=== PATIENT | female | born 1990 | race Caucasian/White ===

== ENCOUNTER → 2017-10-17 | Outpatient (CLI) | payer BC ==
[2012-03-28 21:44] VITALS: BP 113/57
[2017-10-17 16:58] LABS: ALBUMIN 4.1 g/dL (3.5-5.0); BUN/CREATININE RATIO 13.9 (6.0-26.0); CALCIUM 9.6 mg/dL (8.4-10.2); POTASSIUM 4.4 mmol/L (3.6-5.0); TOTAL BILIRUBIN 0.4 mg/dL (0.2-1.3)
[2017-10-17 16:59] LABS: EOS # 0.1 (0.04-0.40); EOS % 1.7 % (1.0-5.0); HEMATOCRIT 41.8 % (37.0-47.0); HEMOGLOBIN 13.9 g/dL (12.5-16.0); LYMPH# 2.9 (1.50-4.00); MEAN CELL VOLUME 90 fl (78-100); MEAN CORPUSCULAR HEMOGLOBIN 30 pg (27-31); MEAN CORPUSCULAR HGB CONC 33 g/dL (33-37); MEAN PLATELET VOLUME 10.8 fl (7.4-10.4); MONO # 0.4 (0.20-0.80); NEU # 2.9 (1.40-6.50); PLATELET COUNT 240 K/mm3 (130-400); RED BLOOD COUNT 4.66 M/mm3 (4.10-5.30); RED CELL DISTRIBUTION WIDTH 12.4 % (11.5-14.5); WHITE BLOOD COUNT 6.3 K/mm3 (4.8-10.8)
[2017-10-17 17:32] LABS: URINE APPEARANCE HAZY; URINE COLOR YELLOW
[2017-10-17 17:33] LABS: URINE BILIRUBIN NEGATIVE (NEGATIVE); URINE BLOOD TRACE (NEGATIVE); URINE GLUCOSE NEGATIVE (NEGATIVE); URINE KETONE NEGATIVE (NEGATIVE); URINE LEUKOCYTE ESTERASE TRACE (NEGATIVE); URINE NITRATE NEGATIVE (NEGATIVE); URINE PROTEIN(semi-quant) TRACE mg/dL (NEGATIVE); URINE UROBILINOGEN NORMAL (NORMAL)
[2017-10-17 17:34] LABS: URINE MUCUS PRESENT (NOT PRESENT)
== END ==
LOC: RAD 15:45
PROVIDERS: Nurse Practitioner Family
DX: R10.11 Right upper quadrant pain (principal)

== ENCOUNTER 2021-01-04 13:00 | Emergency (ER) | payer OTHER ==
[2021-01-04 13:36] LABS: BASO # 0.04 (0.02-0.10); EOS # 0.08 (0.04-0.40); EOS % 0.7 % (1.0-5.0); HEMATOCRIT 39.4 % (37.0-47.0); HEMOGLOBIN 13.4 g/dL (12.5-16.0); LYMPH# 4.53 (1.50-4.00); MEAN CELL VOLUME 89 fl (78-100); MEAN CORPUSCULAR HEMOGLOBIN 30 pg (27-31); MEAN CORPUSCULAR HGB CONC 34 g/dL (33-37); MONO # 0.38 (0.20-0.80); NEU # 5.66 (1.40-6.50); PLATELET COUNT 272 K/mm3 (130-400); RED BLOOD COUNT 4.41 M/mm3 (4.10-5.30); RED CELL DISTRIBUTION WIDTH 12.3 % (11.5-14.5); WHITE BLOOD COUNT 10.7 K/mm3 (4.8-10.8)
[2021-01-04 13:47] LABS: POTASSIUM 3.5 mmol/L (3.5-5.1); SODIUM 143 mmol/L (136-145)
[2021-01-04 13:48] LABS: CALCIUM 9.1 mg/dL (8.3-10.5)
[2021-01-04 13:50] LABS: GLUCOSE 118 mg/dL (65-105); TOTAL PROTEIN 7.2 g/dL (6.4-8.3)
[2021-01-04 13:51] LABS: CARBON DIOXIDE 27 mmol/L (22-29)
[2021-01-04 13:52] LABS: TOTAL BILIRUBIN 0.4 mg/dL (0.2-1.2)
[2021-01-04 13:55] LABS: AST-SGOT 12 U/L (5-34)
[2021-01-04 13:56] LABS: ALT/SGPT 12 U/L (0-55)
[2021-01-04 14:52] VITALS: BP 108/79
[2021-01-04 15:49] LABS: ERYTHROCYTE SEDIMENTATION RATE 7 mm/hr (0-20)
== END 2021-01-04 14:43 | disposition home or self-care (01) ==
LOC: ED 13:00
PROVIDERS: Nurse Practitioner
DX: R20.2 Paresthesia of skin (principal); R20.8 Other disturbances of skin sensation; R20.0 Anesthesia of skin; R51.9 Headache, unspecified

== ENCOUNTER 2021-02-24 13:01 | Outpatient (RCR) | payer OTHER | END 2021-05-25 | disposition still patient (30) | LOC: PT | DX: M53.80 Other specified dorsopathies, site unspecified (principal); M62.89 Other specified disorders of muscle ==